=== PATIENT | male | born 1955 | race Caucasian/White ===

== ENCOUNTER 2021-09-18 07:54 | Day surgery (SDC) | payer MEDICARE ==
[2021-09-18] VITALS (224 sets, daily range): BP systolic 113–126; BP diastolic 57–81; PULSE 65–97; TEMP 97.4–98.2; O2SAT 83–100
[~2021-09-18] VITALS: Ht 182.9 cm; Wt 78.0 kg
[~2021-09-18 07:54] MED LIST: ASPIRIN E.C. 8181 MG PO; GLUCOPHAGE1000 MG PO; GLUCOPHAGE500 MG/TAB PO; LIPITOR 40MG TA40 MG PO; LOPRESSOR 225 MG/TAB PO; LOPRESSOR 550 MG/TAB PO; PLAVIX 75MG TAB75 MG PO; PRINIVIL10 MG PO; PRINIVIL2.5 MG PO
--- NOTE | 2021-09-18 08:40 | NUR ---
Pt has been settled into rm 11 in express unit to get ready for LHC. Dr. Haider at bs discussing poc, and RT just entered room to obtain EKG.
[2021-09-18 09:36] LABS: HEMATOCRIT 37.5 % (42.0-52.0); HEMOGLOBIN 12.9 g/dl (13.5-18.0); MEAN CELL VOLUME 83 fl (80.0-100.0); MEAN CORPUSCULAR HEMOGLOBIN 29 pg (27-31); MEAN CORPUSCULAR HGB CONC 34 g/dl (33.0-37.0); MEAN PLATELET VOLUME 9.6 fl (7.4-10.4); PLATELET COUNT 225 K/mm3 (130-400)
[2021-09-18 09:42] LABS: INR 1.1 (0.8-3.0); PROTHROMBIN TIME 12.3 SECONDS (9.7-12.8)
[2021-09-18 09:45] LABS: PARTIAL THROMBOPLASTIN TIME 31.9 SECONDS (26.0-37.0)
[2021-09-18 09:51] LABS: CREATININE, serum 0.78 mg/dL (0.72-1.25); POTASSIUM 4.3 mmol/L (3.5-4.5)
[2021-09-18] MEDS ORDERED: IMDUR 30MG30 MG/TAB PO (10:00)
[2021-09-18] MEDS ORDERED: NOVOLIN 70100 UNIT/2 SQ (10:01)
--- NOTE | 2021-09-18 10:27 | NUR ---
SEE MERGE FOR ALL MEDICATION ADMINISTRATION TIMES, INTRA AND POST SEDATION ASSESSMENTS
--- NOTE | 2021-09-18 11:54 | NUR ---
Pt back to express unit after heart cath with stent to OM/branch of circumflex. Dr. Haider has discussed poc with pt's . Pt is awake and alert, pwd with reg and unlabored respirations at this time. TR band to rt wrist. pt on tele, sinus rhythm on monitor, qrs wide at baseline.
--- NOTE | 2021-09-18 14:05 | NUR ---
Radial Heart Cath- Reviewed discharge instructions for radial heart catheterization. Cleaning site with mild soap and water, pat dry. Discussed monitoring for redness, hot to touch, inflammation, or temperature >100.4. Discussed when to contact the physician for signs of symptoms of complications or NH. Also reviewed risk factors for heart disease. Covered applicable modifiable risk factors including the following: tobacco cessation, HTN, hyperlipidemia, diabetes, overweight/obesity, sedentary lifestyle, and stress/depression. Patient verbalized understanding. Referral sent to [facility] with patient s permission. Approx. 15 min 1:1 education time spent with patient.
--- NOTE | 2021-09-18 16:18 | NUR ---
Pt has been recovering with no problem. He remains in sinus rhythm, TR band has been deflated with no problem. site dressed with bandaid, folded 2x2 and coban. CMS intact distal. PT is up and ambulatory in room, voided large amount. no concerns at this time.
--- NOTE | 2021-09-18 17:17 | NUR ---
REPORT TO JOSE WAGGONER ON MEDICAL. PT ESCORTED TO ROOM 308 VIA WHEELCHAIR.
--- NOTE | 2021-09-18 17:40 | NUR ---
Patient arrived to the unit by wheelchair. VSS WNL. Alert and oriented x 4. Radial site covered with coban. Good pulses BUE, BLE difficult to find, pt states some chronic pian in his right leg. No skin issues noted. Telemetry in place, NSR , HR 70's.
--- NOTE | 2021-09-18 19:29 | NUR ---
Patient is stable resting in bed, he just got some dinner. at the bedside. Report given to night RN.
--- NOTE | 2021-09-19 02:14 | NUR ---
BEGINNING OF SHIFT NOTE: PATIENT RESTING QUIETLY IN BED DENIES PAIN/NEEDS. FOOD TRAY DELIVERED PER DIETARY. AT BEDSIDE. HAVING COMPLAINTS OF DISCOMFORT WITH IV.
[2021-09-19 03:56] VITALS: BP 118/69; PULSE 70; TEMP 97.6
--- NOTE | 2021-09-19 06:08 | NUR ---
END OF SHIFT: PATIENT RESTED QUIETLY THIS SHIFT. PATIENT HAD NO COMPLAINTS OF PAIN AND RECEIVED NO PRN MEDICATION. PATIENT REMAINED IN SINUS RHYTHM THIS SHIFT AND PATIENT IS EAGER FOR DISCHARGE.
[2021-09-19 06:48] LABS: BASO # 0.1 K/mm3 (0.0-0.2); EOS # 0.7 K/mm3 (0.0-0.7); EOS % 8.7 % (0.0-4.0); GRAN # 5.1 K/mm3 (1.4-6.5); GRAN % 60.6 % (42.2-75.2); HEMOGLOBIN 12.7 g/dl (13.5-18.0); LYMPH # 1.8 K/mm3 (1.2-3.4); LYMPH % 21.9 % (20.0-51.0); MEAN CELL VOLUME 84 fl (80.0-100.0); MEAN CORPUSCULAR HEMOGLOBIN 29 pg (27-31); MEAN CORPUSCULAR HGB CONC 34 g/dl (33.0-37.0); MEAN PLATELET VOLUME 9.9 fl (7.4-10.4); MONO # 0.6 K/mm3 (0.1-0.6); MONO % 7.4 % (1.7-9.3); PLATELET COUNT 224 K/mm3 (130-400); RED BLOOD COUNT 4.42 M/mm3 (4.20-5.60); REDCELL DISTRIBUTION WIDTH-CV 13.1 % (11.5-14.5)
[2021-09-19 06:53] LABS: HEMATOCRIT 36.9 % (42.0-52.0)
[2021-09-19 07:07] LABS: CALCIUM 8.7 mg/dL (8.4-10.2); CREATININE, serum 0.74 mg/dL (0.72-1.25); POTASSIUM 4.3 mmol/L (3.5-4.5)
[2021-09-19 07:22] VITALS: BP 136/72; PULSE 74; TEMP 97.7
--- NOTE | 2021-09-19 08:59 | NUR ---
Patient is resting in bed, alert and orieted x 4, VSS, states he had a good night, no chest pain. Telemetry in place, NSR 60'S. Continues getting NS 75ML/HR. Assessment completed, medications provided. No other needs at this time. Call light within reach.
--- NOTE | 2021-09-19 09:25 | NUR ---
SW met with the patient to discuss discharge plan. The patient lives in [place] with his , Marianne (ph#[phone]). He reports independence with ADLs and does not have any DME. The patient's PCP is Dr. Ari Perez and he receives her medications from [facility] in . The patient does not have a DPOA-HC and he was not interested in completing one at this time. The patient plans to return home with his upon discharge. No additional needs at this time. *Discharge plan: home with *
[2021-09-19] MEDS ORDERED: LIPITOR 80MG80 MG PO (10:57)
[2021-09-19 11:11] VITALS: BP 105/55; PULSE 70; TEMP 98.1
--- NOTE | 2021-09-19 11:55 | NUR ---
Patient and were provided with discharge information. All questions answererd. Telemetry and IV access were discontinued. Pt was accompanied by staff and family to the entrance.
--- NOTE | 2021-09-19 12:43 | NUR ---
Initial visit; Patient a pleasant man who states he is working on getting well and thanked [employer] for looking in on him and offering God's blessings.
== END 2021-09-19 11:58 | disposition home or self-care (01) ==
LOC: COL.CAR 07:54 → MEDICAL 17:30 → COL.CAR 09-19 11:58
PROVIDERS: Internal Medicine Cardiovascular Disease
DX: I25.10 Atherosclerotic heart disease of native coronary artery without angina pectoris (principal); F17.210 Nicotine dependence, cigarettes, uncomplicated
CPT/HCPCS: OP; C1725; C1769; C1874; C1887; C9600; J1644; J1815; J2250; J3010

== ENCOUNTER 2023-07-30 09:09 | Inpatient (IN) | payer MEDICARE ==
[~2023-07-30] VITALS: Ht 182.9 cm; Wt 74.5 kg
[~2023-07-30 09:09] MED LIST changes: +IMDUR 30MG30 MG/TAB PO; +LIPITOR 80MG80 MG PO; +NOVOLIN 70100 UNIT/2 SQ
[2023-08-07] MEDS ORDERED: LR 1,000 ML IV SCH (13:00)
[2023-08-10] VITALS (14 sets, daily range): BP systolic 101–128; BP diastolic 58–68; PULSE 70–99; TEMP 97.6–98.7
[2023-08-10] MEDS ORDERED: fentaNYL 50 MCG/ML 2 ML VIAL ONE (07:01)
[2023-08-10] MEDS ORDERED: Midazolam 2 MG/2 ML VIAL ONE (07:01)
[2023-08-10] MEDS ORDERED: Lidocaine PF 2% (20 MG/ML) 5 ML VIAL ONE (07:02)
[2023-08-10] MEDS ORDERED: dexAMETHasone 10 MG/ML VIAL ONE (07:02)
[2023-08-10] MEDS ORDERED: NS 10 ML IV ONE (07:10)
[2023-08-10] MEDS ORDERED: LANTUS100 U/ML SQ (07:23)
[2023-08-10] MEDS ORDERED: NOVOLOG FLEX100 U/ML SQ (07:26)
[2023-08-10] MEDS ORDERED: ZESTRIL 10MG10 MG PO (07:28)
[2023-08-10] MEDS ORDERED: TOPROL XL 50MG50 MG PO (07:28)
[2023-08-10] MEDS ORDERED: ALDACTONE 25MG25 M1 PO (07:29)
[2023-08-10] MEDS ORDERED: NEURONTIN100 MG/CAP PO (07:31)
[2023-08-10] MEDS ORDERED: NORCO 325 MG-51 TAB PO (07:48)
[2023-08-10] MEDS ORDERED: Ondansetron 4 MG/2 ML VIAL ONE (08:50)
[2023-08-10] MEDS ORDERED: Meperidine 50 MG/ML 1 ML VIAL IV PRN (09:30)
[2023-08-10] MEDS ORDERED: fentaNYL 50 MCG/ML 1 ML SYRINGE/VIAL [PACU/SDC ONLY] IV PRN (09:30)
[2023-08-10] MEDS ORDERED: HYDROmorphone 1 MG/1 ML SYRINGE [PACU/SDC ONLY] IV PRN (09:30)
[2023-08-10] MEDS ORDERED: hydrALAZINE 20 MG/ML 1 ML VIAL IV PRN (09:30)
[2023-08-10] MEDS ORDERED: Ondansetron 4 MG/2 ML VIAL IV PRN ×2 (09:30→10:45)
[2023-08-10] MEDS ORDERED: oxyCODONE 5 MG TAB PO PRN (10:45)
[2023-08-10] MEDS ORDERED: Naloxone 0.4 MG/ML VIAL IV PRN (10:45)
[2023-08-10] MEDS ORDERED: NS 1,000 ML IV SCH (10:45)
[2023-08-10] MEDS ORDERED: Morphine 4 MG/ML VIAL IV PRN (10:45)
[2023-08-10] MEDS ORDERED: Magnes Hydrox (MOM) 80 MG/ML 30 ML CUP PO PRN (10:45)
[2023-08-10] MEDS ORDERED: Glucagon 1 MG VIAL IM PRN (11:15)
[2023-08-10] MEDS ORDERED: Dextrose 50% Water 25 GM/50 ML SYRINGE IV PRN (11:15)
[2023-08-10] MEDS ORDERED: Dextrose (Glucose) 15 GM (4 x 3.75 GM) Chewable TABLET PACK PO PRN (11:15)
--- NOTE | 2023-08-10 11:44 | NUR ---
PT TO ROOM 323 PER BED WITH REPORT FROM KASIE WAGGONER PACU @1130. PT IS DROWSEY, AROUSES TO VERBAL. LUNGS CTA, BOWEL SOUNDS ACTIVE, DRESSING TO RLE CDI WITH COCO WRAP OVER INCISION. KNEE IMMOBILIZER INPLACE. SCD TO LLE. HEMOVAC DRAIN TO RIGH LE WITH SANGUENOUS DRAINAGE IN TUBE.
[2023-08-10] MEDS ORDERED: Insulin Lispro (HumaLOG) SQ SCH ×2 (12:00)
[2023-08-10] MEDS ORDERED: Acetaminophen 500 MG TAB PO SCH (14:00)
--- NOTE | 2023-08-10 14:45 | NUR ---
CAREY met with patient and Marianne to complete initial assessment for discharge planning. They verified that they live in [place], patient sees Dr. Ari Perez as his PCP and uses [facility] in [place]. Patient is covered by Medicare A&B and [employer] supplement. He states he also has a VA policy but isn't sure if he is able to use it and had questions. Patient shared that he has cane, walker, wheelchair and shower chair at home. They report that their daughter has applied to [employer] for a bathroom remodel to make their bathroom handicapped accessible. Discussed discharge options to include IPR, SNF, SB and home with HH. Patient voiced frustration and states he only wants to return home. Discussed him working with therapy while inpatient and following up to discuss his progress. Medicare.gov list of SNFs and SB facilties provided for their review. CAREY contacted [facility] with [facility] to request a visit to discuss insurance questions. Discharge plan: Pending therapy evaluations
[2023-08-10] MEDS ORDERED: ceFAZolin 1 G in Water For Injection,Sterile 10 ML IV SCH (16:00)
[2023-08-10] MEDS ORDERED: metFORMIN 500 MG TAB PO SCH (17:00)
--- NOTE | 2023-08-10 19:13 | NUR ---
report received from luke lovell. pt resting in bed watching tv. drsg CDI with brace in place. pt denies pain. fall precautions in place. call light in reach. all needs met at this time.
--- NOTE | 2023-08-10 20:32 | NUR ---
shift assessment complete, see documentation. pt denies pain. pt tolerated hs meds well. call light in reach. all needs met at this time.
[2023-08-10] MEDS ORDERED: Sennosides/Docusate 8.6-50 MG TAB PO SCH (21:00)
[2023-08-10] MEDS ORDERED: Insulin Glargine-ygfn (Lantus) SQ SCH (21:00)
[2023-08-10] MEDS ORDERED: Atorvastatin 80 MG TAB PO SCH (21:00)
[2023-08-11] VITALS (11 sets, daily range): BP systolic 122–134; BP diastolic 64–74; PULSE 74–86; TEMP 97.6–98.5
[2023-08-11] MEDS ORDERED: Insulin Lispro (HumaLOG) SQ SCH
--- NOTE | 2023-08-11 08:36 | NUR ---
pt a&ox4 resting in bed, physical therapy in assisting patient to recliner. vss. pt reports phantom pain to RLE but denies needs for pain medication. knee immobilizer in place. pt tolerating diet without nausea. INT to right wrist. fall precautions in place. call light in reach. no needs at this time.
[2023-08-11] MEDS ORDERED: Clopidogrel 75 MG TAB PO SCH (09:00)
[2023-08-11] MEDS ORDERED: Lisinopril 10 MG TAB PO SCH (09:00)
[2023-08-11] MEDS ORDERED: Spironolactone 25 MG TAB PO SCH (09:00)
--- NOTE | 2023-08-11 10:12 | NUR ---
SW attended clinical rounds, Per therapy eval, patient doing well with transfers and is insistent on going home. Medicare.gov list of HH providers printed and presented to patient and . Discussed HH vs OP therapy. Patient states he prefers to continue with OP therapy as he is already established with them and trusts them. Patient hopeful to discharge to home tomorrow. Discharge plan: Home with OP therapy
--- NOTE | 2023-08-11 10:20 | NUR ---
CAREY met with patient and to complete initial assessment for discharge planning. Patient and live in [place] with their 17 and 10 year old children. Patient lists her mother Shruthi Mullins ([phone]) as her emergency contact. Patient uses [facility] as her PCP for medical care and is covered by [facility] insurance due to Marcio ([phone]) being retired . Patient denies using any DME. Patient is being transferred to [facility] today for surgery. Patient declines to complete DPOA and states her will make decisions if needed. Discharge plan: Transfer to
--- NOTE | 2023-08-11 11:08 | NUR ---
D: Electromechanic stopped by room on rounds. A: Pt was resting and content with in the room. Pt has no needs right now. Pt and appreciated the visit. P: Electromechanic informed pt that if he needed anything from the photogrammetric engineer area to let his nurse know. Electromechanic will follow up as needed.
--- NOTE | 2023-08-11 18:30 | NUR ---
report received from tresa lovell. pt resting in bed watching tv. pt reporting some phantom pain but stating it is managable. call light in reach. all needs met at this time.
--- NOTE | 2023-08-11 20:11 | NUR ---
shift assessment complete, see documentation. pt reporting 10 stump pain. prn oxycodone administered per orders. call light in reach. all needs met at this time.
--- NOTE | 2023-08-11 23:09 | NUR ---
pt woke up from sleep and is reporting 10/10 right stump pain. pt states he "has a ade horse running from behind the knee to the thigh". prn morphine administered per orders. ice pack in place. call light in reach. all needs met at this time.
[2023-08-12] VITALS (7 sets, daily range): BP systolic 138–158; BP diastolic 74–85; PULSE 76–91; TEMP 97.6–98
--- NOTE | 2023-08-12 03:12 | NUR ---
pt reporting 7/10 medial right stump pain. pt reports shooting pain and states it radiates to his calf. prn oxycodone administered per orders.
--- NOTE | 2023-08-12 08:15 | NUR ---
pt a&ox4 resting in bed. reports pain a /, reports oral pain medication does not provide much relief and ice is not helping. leg elevated on pillow. IV pain medication given for pain relief. pt refusing breakfast, blood glucose 68 this morning and pt encouraged to drink orange juice if not going to eat breakfast. call light in reach. will reassess patients pain.
--- NOTE | 2023-08-12 08:45 | NUR ---
pt resting comfortably in bed with eyes closed, unlabored breathing. pain appears to be relieved with pain medication.
[2023-08-12 08:57] LABS: MEAN CELL VOLUME 83 fl (80.0-100.0); MEAN CORPUSCULAR HEMOGLOBIN 28 pg (27-31); MEAN CORPUSCULAR HGB CONC 34 g/dl (33.0-37.0); MEAN PLATELET VOLUME 9.2 fl (7.4-10.4); PLATELET COUNT 347 K/mm3 (130-400); RED BLOOD COUNT 3.56 M/mm3 (4.20-5.60); REDCELL DISTRIBUTION WIDTH-CV 12.6 % (11.5-14.5)
[2023-08-12 09:05] LABS: HEMATOCRIT 29.4 % (42.0-52.0)
--- NOTE | 2023-08-12 11:22 | NUR ---
new dressing applied to stump, no drainage. pain is well controlled. pt and requesting to speak with social work for home health service, Joanna aware.
--- NOTE | 2023-08-12 11:31 | NUR ---
SW notified by RN that patient is asking for HH referral. SW met with patient and to discuss decision. They stated they have one step into house and patient voiced being nervous about falling. He is choosing [facility] for referral and will transition to OP therapy once the ramp is built at their home. Referral will be faxed to [facility]. Probable discharge to home today. Discharge plan: Home with HH
[2023-08-12] MEDS ORDERED: SENOKOT S 50 MG1 TAB PO (12:22)
[2023-08-12] MEDS ORDERED: ROXICODONE 55 MG/TAB PO (12:23)
--- NOTE | 2023-08-12 12:55 | NUR ---
INT discontinued. discharge instructions given to pt and , all questions answered. pt transferred by wheelchair to personal vehicle.
--- NOTE | 2023-08-12 16:10 | NUR ---
CAREY received notice from [facility] staitng they cannot provide services for patient. CAREY called [facility] who stated they do not have staff in patient's area at this time. They recommended referral to [facility]. CAREY called and was told that office is closed at this time. Discharge orders and clinicals faxed to [facility]. SW will follow up to verify acceptance tomorrow. CAREY called patient's to notify of change in provider and follow up tomorrow to verify provider for HH services.
--- NOTE | 2023-08-13 12:41 | NUR ---
SW contacted [facility] whom is able to accept patient for home health services. Discharge plan: Home with [facility]
== END 2023-08-12 12:56 | disposition home or self-care (01) | DRG 241 ==
LOC: INPTSU 08-10 06:07 → SURG 08-10 07:30
PROVIDERS: Physician Assistant; ADMIT Orthopaedic Surgery
PROC: 0Y6H0Z1 Detachment at Right Lower Leg, High, Open Approach (ICD-10-PCS; principal; 2023-08-10 08:30)
DX: E11.51 Type 2 diabetes mellitus with diabetic peripheral angiopathy without gangrene (principal); I25.10 Atherosclerotic heart disease of native coronary artery without angina pectoris; I10 Essential (primary) hypertension; E78.5 Hyperlipidemia, unspecified; L97.519 Non-pressure chronic ulcer of other part of right foot with unspecified severity; E11.621 Type 2 diabetes mellitus with foot ulcer; Z79.84 Long term (current) use of oral hypoglycemic drugs; Z79.899 Other long term (current) drug therapy; Z79.4 Long term (current) use of insulin; Z79.2 Long term (current) use of antibiotics; Z79.02 Long term (current) use of antithrombotics/antiplatelets; Z95.5 Presence of coronary angioplasty implant and graft; Z87.891 Personal history of nicotine dependence
CPT/HCPCS: J0690; J1100; J1815; J2250; J2270; J2405; J2704; J2795; J3010; J7030; J7120; L1830